=== PATIENT | female | born 1980 | race Caucasian/White ===

== ENCOUNTER 2020-08-22 08:57 | Emergency (ER) | payer BC, SELFPAY ==
--- NOTE | ~2020-08-22 | XR_ITS ---
EXAMINATION: XR wrist LT min 3V DATE: 08/22/2020 09:48 INDICATION: Left wrist pain and swelling. TECHNIQUE: 5 views of left wrist were obtained. COMPARISON: None. FINDINGS: Bone alignment is normal. There is a nondisplaced fracture of distal radius with fracture l ine visible dorsally and at the lunate fossa. Ulnar styloid is intact. 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 IMPRESSION: 1. Nondisplaced fracture of distal radius. Reviewed, dictated and finalized at location A. CTOR PACKER
--- NOTE | ~2020-08-22 | XR_ITS ---
EXAMINATION: XR elbow LT min 3V DATE: 08/22/2020 09:47 INDICATION: Left elbow pain. TECHNIQUE: 4 views of left elbow were obtained. COMPARISON: None. FINDINGS: Bone alignment is normal. No fracture. Joint spaces are well maintained. There is no elbow joint effusion. IMPRESSION: 1. Normal left elbow. Reviewed, dictated and finalized at location A. TY CLOTHING AND EQUIPMENT DEVELOPER IMPRESSION: 1. Normal left elbow.
[2020-08-22 09:05] VITALS: BP 146/82; PULSE 82; RESP 16; TEMP 36.2; O2SAT 99
--- NOTE | 2020-08-22 10:39 | ED.UPPEXIN ---
HPI - Extremity Injury (Upper) General Chief Complaint: Extremity Injury, Upper Stated Complaint: Left wrist injury Time Seen by Provider: 08/22/20 09:00 Source: patient Mode of arrival: ambulatory Limitations: no limitations History of Present Illness HPI narrative: This patient is a 40 year old female right hand dominant who presents for evaluation of left wrist injury. 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 She fells onto her left wrist. She reports mild pain and swelling to her wrist. She reports intermittent tingling in her fingers. She has taken ibuprofen for pain and she denies needing additional pain medication. She reports mild left elbow pain. She denies any other injuries. Related Data Allergies Allergy/AdvReac Type Severity Reaction Status Date / Time No Known Allergies Allergy Unknown Unverified 08/22/20 08:57 Review of Systems Review of Systems: All systems reviewed & are unremarkable except as noted in HPI and below PMFSH Past Medical History Medical History (Updated 08/22/20 @ 11:16 by Rama Franklin MD) Patient denies medical problems Social History Social History Smoking status: Never smoker Second hand tobacco smoke exposure: No Alcohol intake: never Exam Const: General: no acute distress and alert Orientation/consciousness: patient oriented x3 Eyes: EOM: EOMs intact bilaterally Resp: Effort & Inspection: normal respiratory effort Skin: General skin exam: normal color Rashes: no rashes Neuro: General: patient oriented x3 and moves all extremities Extrem: Other: FROM to left arm. Mild swelling to dorsal wrist radially. mild TTP , no erythema Psych: Mental Status: mental status grossly normal Affect: normal affect Course Reevaluation(s) Reevaluation #1: I discussed with patient that she has been found to have a broken wrist. She understands she will be placed in splint to follow up with orthopedic surgeon Date: 08/22/20 Time: 10:44 Consultations Consultation #1: Dr. Mariee states patient can call for follow up today or tomorrow Date: 08/22/20 Time: 10:51 Vital Signs Vital signs: Vital Signs Temperature 97.2 F L 08/22/20 09:05 Pulse Rate 82 08/22/20 09:05 Respiratory Rate 16 08/22/20 09:05 Blood Pressure 146/82 H 08/22/20 09:05 Pulse Oximetry 99 08/22/20 09:05 Temperature 97.2 F L 08/22/20 09:05 Pulse Rate 82 08/22/20 09:05 Respiratory Rate 16 08/22/20 09:05 Blood Pressure 146/82 H 08/22/20 09:05 Pulse Oximetry 99 08/22/20 09:05 Procedures Orthopedic Splinting/Casting Injury #1: Splinting/Casting Date: 08/22/20 Splinting/Casting Time: 11:13 Side: left Upper Extremity Injury Location: wrist Upper Extremity Immobilizer: sugar tong splint Splint: customized in ED OCL: short arm Post-Procedure Neuro Vascular Exam: normal MDM - Extremity Injury (Upper) Imaging Data Radiologist's impression: ITS Impressions Elbow X-Ray 08/22/20 09:49 IMPRESSION: 1. Normal left elbow. Wrist X-Ray 08/22/20 09:50 IMPRESSION: 1. Nondisplaced fracture of distal radius. Discharge Plan Discharge Clinical Impression: Closed fracture of left distal radius Qualifiers: Encounter type: initial encounter Patient Disposition: Home, Self-Care Condition: Stable Instructions: Wrist Fracture in Adults (ED), How to Use a Sling (ED), Splint Care (ED) Additional Instructions: Today you were found to have a broken wrist. You will wear splint to help stabilize your fracture. Continue to ice and elevated to reduce pain and swelling. Call Dr. Mariee today or tomorrow to arrange for follow up. Prescriptions: New hydrocodone-acetaminophen 5-325 mg tablet 1 tablet PO Q6H PRN (Reason: pain) Qty: 10 RF: 0 Follow-up/Referrals: Catrachito Mariee MD [Physician] - PHYSICIAN,TRANSFORMATION LEAD [Primary Care Provider] - Stand Alone F
--- NOTE | 2020-08-22 11:35 | PC.NURSE ---
PT REQUESTING THAT WE CUT OFF RINGS ON L RING FINGER. RING CUTTER USED AND PLIERS HELPED REMOVE THE RINGS. PT TOLERATED PROCEDURE WELL
== END 2020-08-22 11:45 | disposition home or self-care (01) ==
PROVIDERS: Emergency Provider General Practice
DX: S52.592A Other fractures of lower end of left radius, initial encounter for closed fracture (principal); W18.09XA Striking against other object with subsequent fall, initial encounter
CPT/HCPCS: 29125; 73080; 73110; 99284; A4565

== ENCOUNTER 2020-09-25 11:30 | Outpatient (CLI) | payer BC, SELFPAY ==
[2020-09-25 11:55] LABS: Basophils Absolute Auto 0.1 K/mm3 (0.0-0.1); Basophils Percent Auto 0.8 % (0.2-1.2); Eosinophils Absolute Auto 0.3 K/mm3 (0-0.3); Eosinophils Percent Auto 3.6 % (0-4.4); Hemoglobin 13.7 g/dL (12.0-15.0); Immature Granulocyte Absolute 0.02 K/mm3 (0.00-0.031); Immature Granulocyte Percent A 0.3 % (0-0.5); Mean Corpuscular HGB Conc 34.3 g/dl (32-36); Mean Corpuscular Hemoglobin 30.9 pg (26-34); Mean Corpuscular Volume 90.3 fl (80-100); Mean Platelet Volume 9.7 fl (7.4-10.4); Monocytes Absolute Auto 0.5 K/mm3 (0.1-0.6); Monocytes Percent Auto 6.3 % (2.6-8.5); Neutrophils Absolute Auto 4.3 K/mm3 (1.3-6.7); Platelet Count Result 263 k/mm3 (150-375); Red Blood Count 4.43 M/mm3 (4.2-5.4); Red Cell Distribution Width 12.5 % (11.5-14.5); White Blood Count 7.4 K/mm3 (4.5-10.0)
[2020-09-25 12:45] LABS: Alanine Aminotransferase 23 U/L (4-35); Albumin Level 4.4 g/dL (3.5-5.1); Alkaline Phosphatase 68 U/L (38-126); Anion Gap 4 mmol/L (8-16); Aspartate Amino Transferase 26 U/L (14-36); Bilirubin,Total 0.4 mg/dL (0.2-1.3); Blood Urea Nitrogen 9 mg/dL (7-17); Calcium 8.6 mg/dL (8.4-10.2); Carbon Dioxide 29 mmol/L (22-30); Chloride 106 mmol/L (98-107); Estimated Glomerular Filt Rate > 60; Glucose 95 mg/dL (65-105); Potassium 4.3 mmol/L (3.4-5.0); Sodium 139 mmol/L (137-145)
== END 2020-09-25 11:31 | disposition home or self-care (01) ==
LOC: ANHLAB 11:31
PROVIDERS: PCP Internal Medicine; Visit Provider Obstetrics & Gynecology
DX: R59.0 Localized enlarged lymph nodes (principal)
CPT/HCPCS: 36415; 80053; 85025

== ENCOUNTER 2020-10-05 09:39 | Outpatient (CLI) | payer BC, SELFPAY ==
--- NOTE | ~2020-10-05 | MM_ITS ---
EXAMINATION: MM diagnostic armen BI w marlyn HISTORY: Axillary lymphadenopathy TECHNIQUE: Craniocaudal, mediolateral, and mediolateral oblique 3-D tomosynthesis images of the breas ts were performed and synthetic 2-D images were generated. CAD analysis was submitted and interpreted . COMPARISON: 04/02/2012 BREAST PARENCHYMAL COMPOSITION: The breasts are heterogeneously dense, which may obscure small masses . FINDINGS: There is no evidence of suspicious mass, calcification, or architectural distortion in eit her breast to suggest malignancy. There has been no suspicious interval change. No axillary lymphaden opathy is mammographically identified. IMPRESSION: 1. No specific mammographic correlate is identified for the patient's reported lymphadenopathy. No ma mmographically detected lymphadenopathy is seen. Further evaluation at this time should be based on c linical assessment. Continued follow-up physical examination is recommended. 2. Recommend routine screening mammography in one year. BI-RADS Category 1: Negative Reviewed, dictated and finalized at location A. IMPRESSION: 1. No specific mammographic correlate is identified for the patient's reported lymphadenopathy. No mammographically detected lymphadenopathy is seen. Further evaluation at this time should be based on clinical assessment. Continued follo w-up physical examination is recommended. 2. Recommend routine screening mammography in one year. BI-RADS Category 1: Negative
== END 2020-10-05 09:40 | disposition home or self-care (01) ==
LOC: ANHIMG 09:41
PROVIDERS: PCP Internal Medicine; Visit Provider Obstetrics & Gynecology
DX: R59.0 Localized enlarged lymph nodes (principal); Z80.3 Family history of malignant neoplasm of breast
CPT/HCPCS: 77062; 77066; G0279

== ENCOUNTER 2024-01-09 08:35 | Outpatient (CLI) | payer BC, SELFPAY ==
--- NOTE | ~2024-01-09 | MM_ITS ---
EXAMINATION: MM screening armen BI w marlyn HISTORY: Screening mammogram TECHNIQUE: Craniocaudal and mediolateral oblique 3-D tomosynthesis images were obtained and synthetic 2-D images were generated. CAD analysis was submitted and interpreted. COMPARISON: 12/16/2022, 10/05/2020 BREAST PARENCHYMAL COMPOSITION:Dense: The breasts are heterogeneously dense, which may obscure small masses. FINDINGS: No suspicious mass, calcification, or architectural distortion are identified in either morenita ast to suggest malignancy. There has been no suspicious interval change. IMPRESSION: No mammographic evidence of malignancy. Recommend routine screening mammography in one year. BI-RADS Category 1: Negative Reviewed, dictated and finalized at location .
== END 2024-01-09 08:36 | disposition home or self-care (01) ==
LOC: ANHIMG 08:38
PROVIDERS: PCP Internal Medicine; Visit Provider Nurse Practitioner Family
DX: Z12.31 Encounter for screening mammogram for malignant neoplasm of breast (principal)
CPT/HCPCS: 77063; 77067